=== PATIENT | male | born 1980 | race Caucasian/White ===

== ENCOUNTER 2016-08-01 14:20 | Emergency (ER) | payer MEDICARE, OTHER ==
[2016-08-01 14:21] VITALS: BMI 30.2
[2016-08-01 14:35] VITALS: TEMP 98.8
[2016-08-01 14:55] LABS: AUTOMATED BASOPHIL 0.7 % (0-2); AUTOMATED EOSINOPHIL 0.7 % (0-5); AUTOMATED LYMPH 9.7 % (17-44); AUTOMATED MONOCYTE 8.1 % (3-10); AUTOMATED NEUTROPHIL 80.8 % (45-76)
[2016-08-01 15:12] LABS: BLOOD UREA NITROGEN 8 MG/DL (9-20); CALCIUM 9.5 MG/DL (8.4-10.2); CALCULATED OSMOLALITY 264 MOs/Kg (270-290); CHLORIDE 95 mEq/L (98-107); GLUCOSE 97 MG/DL (70-99); SODIUM LEVEL 138 mEq/L (137-146); TOTAL PROTEIN 7.3 G/DL (6.3-8.2)
[2016-08-01] MEDS ORDERED: ONDANSETRON HCL 4 MG ODT TAB PO ONE (16:32)
[2016-08-01] MEDS ORDERED: OXYCODONE HCL 5 MG TABLET PO ONE (16:32)
--- NOTE | 2016-08-01 16:38 | EDPRACDOC ---
- General Information Chief Complaint: Male Urogenital Problems Stated Complaint: RT SWOLLEN TESTICLE PAINFUL Time Seen by Provider: 08/01/16 16:28 Information Source: Patient Home Medications: Home Medications Alprazolam [Xanax] 2 mg PO QID 04/24/14 Oxycodone Immediate Release [Oxy-Ir] 15 mg PO QID 04/24/14 Dextroamphetamine/Amphetamine [Amphetamine Salts 30 mg Tab] 30 mg PO BID Doxycycline [Vibramycin] 100 mg PO BID #14 tab 08/01/16 Oxycodone HCl/Acetaminophen [Percocet 10-325 mg Tablet] 1 each PO Q4 #20 tablet 08/01/16 Testosterone [Androgel] 10 gm TOP QHS 08/01/16 Allergies/Adverse Reactions: Allergies Allergy/AdvReac Type Severity Reaction Status Date / Time No Known Allergies Allergy Verified 08/01/16 14:35 - History of Present Illness HPI: PATIENT PRESENTS WITH RIGHT TESTICLE SWELLING AND PAIN. TAKES NARCOTICS REGULARLY. TESTOSTERONE TOPICALLY. NO FEVER. 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 Denies: Depression Additional Past Medical History: TBI. Chronic Pain Syndrome Surgical History: Reports: Other (TRACH, COCCYX SURGERY) - Family Medical History Reports: Hypertension, Cardiac Disorders (FATHER). Denies: Cancer, Stroke - Social Medical History Smoking Status: Heavy tobacco smoker (5 or more cigarettes/day or daily pipe/ cigar) Social History: Reports: Substance Use Disorder Lives With: Family Lives In: Home EDM Review of Systems - Review of Systems ROS Negative Except as Marked: Yes All systems reviewed and were negative except as marked Constitutional: No Symptoms Reported. negative: Fever, Chills, Weakness, Fatigue, Loss of Appetite Eyes: No Symptoms Reported. negative: Redness, Blurred Vision, Double Vision, Discharge, Pain, Light Sensitive, Photophobia Ears: No Symptoms Reported. negative: Pain, Hearing Loss, Drainage, Ear Pulling Throat: No Symptoms Reported. negative: Pain, Swelling Nose: No Symptoms Reported. negative: Congestion, Bleeding, Discharge, Injection, Swelling, Deformity, Ecchymosis, Tender, Abrasion, Laceration Mouth: No Symptoms Reported. negative: Pain, Drooling Respiratory: No Symptoms Reported. negative: Cough, Brassy Cough, Barky Cough, Shortness of Breath, Wheezing, Hemoptysis Cardiovascular: No Symptoms Reported. negative: Chest Pain, Palpitations, Syncope, Edema, Orthopnea, PND, Skin Mottling, Cyanosis Gastrointestinal: No Symptoms Reported. negative: Pain, Constipation, Nausea, Vomiting, Diarrhea, Melena, Formula Intolerance Genitourinary: Testicular Pain. negative: Bleeding, Dysuria, Discharge, Frequency, Hematuria, Neurological: No Symptoms Reported. negative: Headache, Dizziness, Seizure, Numbness, Weakness, Speech Difficulty, Gait Difficulty Musculoskeletal: No Symptoms Reported. negative: Neck, Chestwall, Ribs, Back, Shoulder, Arm, Elbow, Forearm, Wrist, Hand, Pelvis, Hip, Femur, Knee, Leg, Ankle , Foot Integumentary: No Symptoms Reported. negative: Itching, Rash, Bruising, Wound Allergic/Immunologic: No Symptoms Reported. negative: Hives, Itching Hematologic: No Symptoms Reported. negative: Lymphadenopathy, Easy Bruising, Easy Bleeding Endocrine: No Symptoms Reported. negative: Weight Gain, Weight Loss Psychiatric: No Symptoms Reported. negative: Anxiety, Depression, Hallucinations, Insomnia, Suicidal - Physical Exam Constitutional: Alert (Awake), Distress (MILD) Oriented to: Time, Person, Place Last recorded Vital Signs: Last Vital Signs Temp 98.8 F 08/01/16 14:32 Pulse 112 08/01/16 14:32 Resp 20 08/01/16 14:32 BP 170/78 08/01/16 14:32 Pulse Ox 93 08/01/16 14:32 Oxygen Pulse Oxygen Saturation 93 O2 Device Room Air Oxygen Flow Rate Fraction of Inspired Oxygen ( FIO2) - HEENT Head: Normal ( normocephalic) Eye Exam: Normal (PERRL, EOMI, Sclera white) Oropharynx: Normal (Pharynx:Moist without exudate,Gums-no swelling) Tympanic Membrane: Normal ENT EAC: Normal TMJ: Normal Nose: No Symptoms Reported (septum midline) Neck: Normal (FROM, trachea at midline) - Respiratory/Cardiovascular Respiratory: Normal - CTA (BBS clear to auscultation without adventitious sounds ) Cardiovascular: Normal (RRR without murmur, gallop or rub) - GI Auscultation: Normal (NABS) Palpation: Normal (Soft,No rebound or guarding, non distended) Tenderness: Non tender Polk's Sign: Negative - Scrotum: Right: Tender, Swelling - Musculoskeletal Back: Normal (Non-Tender) Extremities: Normal (Normal tone, Pulses 2+ No cyanosis or edema, FROM) - Integumentary Skin: Normal, Warm, Dry Lymphatics: Normal (no adenopathy) - Neurologic Memory Impaired: Normal Motor Function: Normal (Normal tone, Pulses 2+ No cyanosis or edema, FROM) Cranial Nerve: Normal (CN II-X11 intact sensation, strength 5/5) Cerebellar: Normal Mood Description: Normal Perception: Normal - Results 08/01/16 14:38 08/01/16 14:38 WBC 13.7 xk/uL (3.8-10.8) H 08/01/16 14:38 RBC 5.23 xM/uL (4.70-6.10) 08/01/16 14:38 Hgb 16.2 g/dL (14.0-18.0) 08/01/16 14:38 Hct 46.9 % (42-52) 08/01/16 14:38 MCV 90 fL (80-94) 08/01/16 14:38 MCH 31.0 pg (27-32) 08/01/16 14:38 MCHC 34.5 g/dl (33-36) 08/01/16 14:38 RDW 13.9 % (11.5-14.5) 08/01/16 14:38 Plt Count 239 xk/uL (130-400) 08/01/16 14:38 MPV 8.0 fL (7.4-10.4) 08/01/16 14:38 Neut % (Auto) 80.8 % (45-76) H 08/01/16 14:38 Lymph % (Auto) 9.7 % (17-44) L 08/01/16 14:38 [place] % (Auto) 8.1 % (3-10) 08/01/16 14:38 Eos % (Auto) 0.7 % (0-5) 08/01/16 14:38 Baso % (Auto) 0.7 % (0-2) 08/01/16 14:38 Absolute Neuts (auto) 10.96 xk/uL (1.7-8.2) H 08/01/16 14:38 Absolute Lymphs (auto) 1.23 xk/uL (0.65-4.75) 08/01/16 14:38 Sodium 138 mEq/L (137-146) 08/01/16 14:38 Potassium 3.9 mEq/L (3.5-5.1) 08/01/16 14:38 Chloride 95 mEq/L (98-107) L 08/01/16 14:38 Carbon Dioxide 31 mMOL/L (22-33) 08/01/16 14:38 Anion Gap 16 mEq/L (8-16) 08/01/16 14:38 BUN 8 MG/DL (9-20) L 08/01/16 14:38 Creatinine 0.80 MG/DL (0.66-1.25) 08/01/16 14:38 Estimated GFR (MDRD) > 60 mL/min (>=60) 08/01/16 14:38 Glucose 97 MG/DL (70-99) 08/01/16 14:38 Calculated Osmolality 264 MOs/Kg (270-290) L 08/01/16 14:38 Calcium 9.5 MG/DL (8.4-10.2) 08/01/16 14:38 Total Bilirubin 1.0 MG/DL (0.2-1.3) 08/01/16 14:38 AST 36 IU/L (17-59) 08/01/16 14:38 ALT 92 IU/L (21-72) H 08/01/16 14:38 Alkaline Phosphatase 92 IU/L (38-126) 08/01/16 14:38 Total Protein 7.3 G/DL (6.3-8.2) 08/01/16 14:38 Albumin 4.2 G/DL (3.5-5.0) 08/01/16 14:38 Lab Results 08/01/16 08/01/16 14:38 14:38 WBC 13.7 H RBC 5.23 Hgb 16.2 Hct 46.9 MCV 90 MCH 31.0 MCHC 34.5 RDW 13.9 Plt Count 239 MPV 8.0 Neut % (Auto) 80.8 H Lymph % (Auto) 9.7 L [place] % (Auto) 8.1 Eos % (Auto) 0.7 Baso % (Auto) 0.7 Absolute Neuts (auto) 10.96 H Absolute Lymphs (auto) 1.23 Sodium 138 Potassium 3.9 Chloride 95 L Carbon Dioxide 31 Anion Gap 16 BUN 8 L Creatinine 0.80 Estimated GFR (MDRD) > 60 Glucose 97 Calculated Osmolality 264 L Calcium 9.5 Total Bilirubin 1.0 AST 36 ALT 92 H Alkaline Phosphatase 92 Total Protein 7.3 Albumin 4.2 Decision Time to Discharge: 21:21 - Departure Yes I personally saw and evaluated the patient. Disposition: Home Condition: Good Final Diagnosis: Epididymitis Instructions: Epididymitis (ED) Education/Counseling Given To: Patient Education/Counseling Given Regarding: Diagnosis, Treatment, Prognosis, Follow Up Referrals: Christiano Owen MD [Primary Care Provider] - One Week Prescriptions: New Doxycycline [Vibramycin] 100 mg PO BID #14 tab Oxycodone HCl/Acetaminophen [Percocet 10-325 mg Tablet] 1 each PO Q4 #20 tablet No Action Oxycodone Immediate Release [Oxy-Ir] 15 mg PO QID Alprazolam [Xanax] 2 mg PO QID Dextroamphetamine/Amphetamine [Amphetamine Salts 30 mg Tab] 30 mg PO BID Testosterone [Androgel] 10 gm TOP QHS
[2016-08-01 16:40] LABS: LEUKOCYTES/URINE 2+ (NEGATIVE); NITRITE/URINE NEG (NEGATIVE); URINE OCCULT BLOOD 1+ (NEG/TRACE); WBC/URINE TNTC (0-2)
[2016-08-01] MEDS ORDERED: AZITHROMYCIN 250 MG TAB PO ONE (16:55)
[2016-08-01] MEDS ORDERED: CEFTRIAXONE 1 GM in D5W 100 ML IV ONE (16:55)
--- NOTE | 2016-08-01 21:04 | DIRPT ---
CLINICAL DATA: Right-sided testicular pain and swelling beginning this morning. EXAM: SCROTAL ULTRASOUND DOPPLER ULTRASOUND OF THE TESTICLES TECHNIQUE: Complete ultrasound examination of the testicles, epididymis, and other scrotal structures was performed. Color and spectral Doppler ultrasound were also utilized to evaluate blood flow to the testicles. COMPARISON: None. FINDINGS: Right testicle Measurements: 4.2 x 2.5 x 3.2 cm. No mass or microlithiasis visualized. Left testicle Measurements: 5.3 x 2.0 x 2.5 cm. No mass or microlithiasis visualized. Right epididymis: The tail of the right epididymis inferior to the testicle is markedly enlarged and heterogeneous in echotexture. This shows markedly increased blood flow on color Doppler ultrasound. This is consistent with acute epididymitis. Left epididymis: Normal in size and appearance. Hydrocele: Tiny right hydrocele. Varicocele: None visualized. Pulsed Doppler interrogation of both testes demonstrates normal low resistance arterial and venous waveforms bilaterally. IMPRESSION: Acute right sided epididymitis involving the tail, inferior to the right testicle. Tiny reactive hydrocele also noted. No evidence of testicular mass or torsion. Electronically Signed By: Nikolas Watkins M.D. On: 08/01/2016 21:01
[2016-08-01 22:37] VITALS: BP 132/69; PULSE 96
== END 2016-08-01 22:15 | disposition home or self-care (01) ==
LOC: ED 14:20
DX: N45.1 Epididymitis (principal)
CPT/HCPCS: 36415; 76870; 80053; 81001; 85025; 93975; 96365; 99284; A9270; J0696; J7060; J3490